=== PATIENT | female | born 1960 | race Two or more races ===

== ENCOUNTER 2022-06-02 17:06 | Emergency (ER) | payer OTHER ==
[~2022-06-02] VITALS: Ht 154.9 cm; Wt 80.3 kg
[2022-06-03] MEDS ORDERED: PEPCID AC20 MG PO (00:28)
[2022-06-03] MEDS ORDERED: LEVSIN/SL0.125 MG SL (00:28)
== END 2022-06-03 01:30 | disposition home or self-care (01) ==
LOC: ER 17:06
DX: K63.89 Other specified diseases of intestine (principal); R10.32 Left lower quadrant pain; K80.20 Calculus of gallbladder without cholecystitis without obstruction; K43.9 Ventral hernia without obstruction or gangrene; K46.9 Unspecified abdominal hernia without obstruction or gangrene

== ENCOUNTER 2022-08-25 11:34 | Emergency (ER) | payer OTHER ==
[~2022-08-25] VITALS: Ht 154.9 cm; Wt 79.4 kg
[~2022-08-25 11:34] MED LIST: LEVSIN/SL0.125 MG SL; PEPCID AC20 MG PO
[2022-08-25] MEDS ORDERED: PROTONIX20 MG PO (11:48)
== END 2022-08-25 13:16 | disposition home or self-care (01) ==
LOC: ER 11:34
DX: H01.001 Unspecified blepharitis right upper eyelid (principal); Z88.6 Allergy status to analgesic agent; Z86.73 Personal history of transient ischemic attack (TIA), and cerebral infarction without residual deficits

== ENCOUNTER → 2023-08-05 | Emergency (ER) | payer OTHER ==
[~2023-08-05] VITALS: Ht 152.4 cm; Wt 68.0 kg
[~2023-08-05] MED LIST changes: +PROTONIX20 MG PO
== END | disposition home or self-care (01) ==
LOC: ER 09:49
DX: R05.9 Cough, unspecified (principal); Z20.822 Contact with and (suspected) exposure to COVID-19; Z88.6 Allergy status to analgesic agent

== ENCOUNTER 2024-04-25 18:05 | Emergency (ER) | payer OTHER ==
[~2024-04-25] VITALS: Ht 162.6 cm; Wt 83.0 kg
[2024-04-25] MEDS ORDERED: 0.9 % SODIUM CHLORIDE 1,000 ML IV SCH (19:30)
[2024-04-25] MEDS ORDERED: HYOSCYAMINE SULFATE 0.125 MG TAB.SUBL SL ONE (19:30)
[2024-04-25] MEDS ORDERED: ONDANSETRON HCL 2 MG/ML VIAL IV ONE (19:30)
[2024-04-25] MEDS ORDERED: FAMOTIDINE/PF 20 MG/2 ML VIAL IV PUSH ONE (19:30)
[2024-04-25 20:08] LABS: HEMATOCRIT 42.4 % (36.0-45.00); HEMOGLOBIN 14.2 g/dL (12.0-15.00); MEAN CELL VOLUME 81.7 fL (80.00-100.00); MEAN CORPUSCULAR HEMOGLOBIN 27.4 pg (27.00-32.0); MEAN CORPUSCULAR HGB CONC 33.6 g/dl (32.0-36.0); PLATELET COUNT 258 K/uL (150-450); RED BLOOD COUNT 5.19 M/uL (4.00-6.00); RED CELL DISTRIBUTION WIDTH 14.4 % (11.5-14.5)
[2024-04-25 20:35] LABS: ALBUMIN 3.7 gm/dL (3.4-5.0); BILIRUBIN TOTAL 1.69 mg/dL (0.3-1.2); BILIRUBIN,CONJUGATED 1.01 mg/dL (0.0-0.2); BILIRUBIN,UNCONJUGATED 0.68 mg/dL (0.0-0.6); CALCIUM 9.6 mg/dL (8.5-10.1); CREATININE SERUM 0.8 mg/dL (0.55-1.02); GFR 72.44; GLOBULINA 4.4 G/DL (2.4-3.5); POTASSIUM 4.23 mEq/L (3.5-5.1); TOTAL PROTEIN 8.1 gm/dL (6.4-8.2)
[2024-04-25] MEDS ORDERED: MAG HYDROX/ALUMINUM HYD/SIMETH 30 ML BLIST.PACK PO ONE (23:15)
[2024-04-25] MEDS ORDERED: MEPERIDINE HCL 25 MG/ML AMPUL IM ONE (23:15)
== END 2024-04-26 02:11 | disposition home or self-care (01) ==
LOC: ER 18:05
PROVIDERS: Emergency Medicine
DX: K29.70 Gastritis, unspecified, without bleeding (principal); K80.20 Calculus of gallbladder without cholecystitis without obstruction; Z88.6 Allergy status to analgesic agent